=== PATIENT | female | born 1995 | race Caucasian/White ===

== ENCOUNTER 2016-12-16 16:44 | Emergency (ER) | payer OTHER ==
[~2016-12-16] VITALS: Ht 162.6 cm; Wt 54.4 kg
[2016-12-16 16:59] VITALS: Ht 162.6 cm; Wt 54.4 kg
[2016-12-16] MEDS ORDERED: BCPILLS PO (17:11)
[2016-12-16] MEDS ORDERED: AMPH15CA7 PO (17:11)
[2016-12-16] MEDS ORDERED: AZITHROMYCIN 250 MG TAB PO STA (20:22)
[2016-12-16] MEDS ORDERED: CEFTRIAXONE SOD 350MG/ML 1 GM VIAL IM STA (20:22)
[2016-12-16 20:50] VITALS: BP 123/74; PULSE 60; TEMP 37; O2SAT 100
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
== END 2016-12-16 20:51 | disposition home or self-care (01) ==
LOC: C.EDB 16:47 → C.EDC 20:51
DX: T74.21XA Adult sexual abuse, confirmed, initial encounter (principal); Y07.50 Unspecified non-family member, perpetrator of maltreatment and neglect